=== PATIENT | male | born 1950 | race Caucasian/White ===

== ENCOUNTER → 2024-01-28 09:40 | Outpatient (REF) | payer MEDICARE, OTHER, SELFPAY | LOC: HWRAD 09:40 | PROVIDERS: ATTENDING PHYSICIAN Nurse Practitioner | DX: Z87.891 Personal history of nicotine dependence (principal) | CPT/HCPCS: 71271 ==

== ENCOUNTER → 2024-02-04 10:39 | Outpatient (REF) | payer MEDICARE, OTHER, SELFPAY | LOC: HWRAD 10:39 | PROVIDERS: ATTENDING PHYSICIAN Nurse Practitioner | DX: R10.31 Right lower quadrant pain (principal) | CPT/HCPCS: 72110; 73502 ==

== ENCOUNTER → 2024-12-06 11:14 | Outpatient (REF) | payer MEDICARE, OTHER, SELFPAY | LOC: HWRCS 11:14 | PROVIDERS: ATTENDING PHYSICIAN Internal Medicine; FAMILY PHYSICIAN Nurse Practitioner | DX: R42 Dizziness and giddiness (principal); I25.10 Atherosclerotic heart disease of native coronary artery without angina pectoris; I48.0 Paroxysmal atrial fibrillation; I25.2 Old myocardial infarction; I10 Essential (primary) hypertension | CPT/HCPCS: 93306 ==

== ENCOUNTER → 2024-12-07 08:23 | Outpatient (REF) | payer MEDICARE, OTHER, SELFPAY | LOC: HWRCS 08:23 | PROVIDERS: ATTENDING PHYSICIAN Internal Medicine; FAMILY PHYSICIAN Nurse Practitioner | DX: R42 Dizziness and giddiness (principal); I25.10 Atherosclerotic heart disease of native coronary artery without angina pectoris; I48.0 Paroxysmal atrial fibrillation; I25.2 Old myocardial infarction; I10 Essential (primary) hypertension | CPT/HCPCS: 78452; 93017; A9500 ==

== ENCOUNTER → 2024-12-13 08:43 | Outpatient (REF) | payer MEDICARE, OTHER, SELFPAY ==
[2024-12-13 10:09] LABS: % Basophils 0.6 % (0-2); % Eosinophils 2.6 % (0-6); % Immature Granulocytes 0.2 % (0-0.5); % Lymphocytes 30.6 % (20.5-51.1); % Monocytes 7.1 % (1.7-9.3); % Neutrophils 58.9 % (42.2-75.2); Absolute Eosinophils 0.2 10^3/uL (0-0.7); Absolute Lymphocytes 1.9 10^3/uL (1.2-3.4); Absolute Monocytes 0.4 10^3/uL (0.1-0.6); Absolute Neutrophils 3.6 10^3/uL (1.4-6.5); Hemoglobin 15.4 g/dL (13.0-18.0); Mean Corp Hgb Conc. 34.2 g/dL (33.0-37.0); Mean Corpuscular Hgb 30.2 pg (27.0-31.0); Mean Corpuscular Volume 88.2 fL (80.0-94.0); Mean Platelet Volume 9.3 fL (7.4-10.4); Nucleated Red Blood Cells % 0 % (-); Platelet Count 213 10^3/uL (130-400); Red Cell Dist. Width 12.6 % (11.5-14.5); White Blood Cell Count 6.2 10^3/uL (4.8-10.8)
[2024-12-13 10:20] LABS: ALT (SGPT) 24 U/L (0-50); AST (SGOT) 20 U/L (17-59); Albumin 4.2 g/dl (3.5-5.0); Alkaline Phosphatase 47 U/L (38-126); Blood Urea Nitrogen 17 mg/dl (9-20); Calcium 9.7 mg/dl (8.4-10.2); Carbon Dioxide 25 mmol/L (22-30); Chloride 106 mmol/L (98-107); Glucose 183 mg/dl (70-99); Potassium 4.1 mmol/L (3.5-5.1); Sodium 141 mmol/L (135-145); Total Bilirubin 1.3 mg/dl (0.2-1.3); Total Protein 7.1 g/dl (6.3-8.2); eGFR > 60.00
== END ==
LOC: SDSPAT 08:41 → CATH 08:43
PROVIDERS: ATTENDING PHYSICIAN Internal Medicine Cardiovascular Disease; FAMILY PHYSICIAN Nurse Practitioner; OTHER PHYSICIAN Internal Medicine
DX: R94.39 Abnormal result of other cardiovascular function study (principal); R42 Dizziness and giddiness; I25.10 Atherosclerotic heart disease of native coronary artery without angina pectoris
CPT/HCPCS: 36415; 80053; 85025; 93005

== ENCOUNTER 2024-12-15 10:07 | Day surgery (SDC) | payer MEDICARE, OTHER, SELFPAY ==
[2024-12-13 13:10] VITALS: BMI 31.3
[2024-12-15] VITALS (15 sets, daily range): BP systolic 122–143; BP diastolic 49–95; BMI 29.9
[2024-12-15] MEDS: NSS 299 ML IV (10:29)
--- NOTE | 2024-12-15 15:27 | ITS.CL.CATH ---
[employer] - Catheterization
Cardiac Catheterization
Procedure Report:
CARDIAC CATHETERIZATION REPORT
Date of Procedure: 12/15/2024
Referring: Ramiro Vega M.D., Ph.D.
INDICATION: Known coronary artery disease, abnormal stress test.
PROCEDURE:
1. Left heart catheterization.
2. Coronary angiography.
A total of 26 minutes of procedural/moderate sedation was utilized. An independent director biomedical engineering was present to assist with and help manage the patient's level of consciousness and physiologic status.
ACCESS:
1. 6 Brazilian right radial artery using a modified Seldinger technique.
CATHETERS:
1. 5 Brazilian JR4.
2. 5 Brazilian JL 3.5.
HEMODYNAMIC DATA
Weight (kg): 99.8
AO (s/d/x, mmHg): 105/55/72
LV (s/x mmHg): 108/15
LEFT VENTRICULOGRAPHY: Not performed.
CORONARY ANGIOGRAPHY
Dominance: Right.
Left Main: Normal size, bifurcating vessel. There is a moderate to severe 70+% tapering of the distal left main coronary artery as it approaches the bifurcation and extends into the LAD and circumflex.
LAD: Normal size vessel giving rise to 1 significant diagonal. There is a long, 60% lesion in the proximal vessel. There is a 50% lesion in the mid LAD. There is a 40% lesion in the proximal margin of the diagonal before it bifurcates into
upper and lower branches.
Ramus: Congenitally absent.
Circumflex: Normal size, nondominant vessel that is essentially a single obtuse marginal which bifurcates into an upper and lower branch. There is a 70% lesion in the proximal circumflex.
RCA: Large size, dominant vessel with a large posterolateral arcade. There is a patent stent in the proximal RCA. There is a 70-80% lesion in the ostium of the RPDA.
INTERVENTION(S)
None.
Closure Device: Vascular band.
Radiation (mGy): 508
DAP (cm2.Gy): 24.9
Fluoroscopy time (minutes): 2.5
CONCLUSIONS
1. Right dominant circulation with a 70-80% lesion in the ostium of the RPDA, a 70% lesion in the proximal circumflex, a severe 70+ percent tapering of the distal left main coronary artery leading into a 60% lesion within the proximal LAD, a 50%
lesion in the mid LAD and a 40% lesion in the proximal margin of the diagonal.
2. Mildly elevated filling pressures (LVEDP = 15 mmHg at 99.8 kg).
RECOMMENDATIONS:
1. Expectant management after cardiac catheterization via right radial approach.
2. Limited weight bearing on the right wrist for one week.
3. Consultation with CT surgery regarding optimal revascularization strategy.
4. Continue aggressive secondary prevention with high-dose, high potency statin. Goal LDL <55.
5. Decrease metoprolol succinate to 12.5 mg daily given relative bradycardia.
6. Continue OMT/GDMT as hemodynamics will permit.
Copy to: Ramiro Vega M.D., Ph.D., [facility] [employer]
Parker Morgan, DO, FACC, FACP
== END 2024-12-15 16:57 | disposition home or self-care (01) ==
LOC: CATH 10:07
PROVIDERS: ATTENDING PHYSICIAN Internal Medicine Cardiovascular Disease; FAMILY PHYSICIAN Nurse Practitioner; OTHER PHYSICIAN Internal Medicine
DX: I25.10 Atherosclerotic heart disease of native coronary artery without angina pectoris (principal); R94.39 Abnormal result of other cardiovascular function study; Z79.01 Long term (current) use of anticoagulants; Z79.899 Other long term (current) drug therapy
CPT/HCPCS: 99152; 99153; 93458; Q9967

== ENCOUNTER → 2025-03-23 07:19 | Outpatient (REF) | payer MEDICARE, OTHER, SELFPAY | LOC: HWRAD 07:19 | PROVIDERS: ATTENDING PHYSICIAN Internal Medicine Critical Care Medicine; FAMILY PHYSICIAN Nurse Practitioner | DX: F17.210 Nicotine dependence, cigarettes, uncomplicated (principal) | CPT/HCPCS: 71271 ==

== ENCOUNTER 2025-04-08 15:20 | Outpatient (RCR) | payer MEDICARE, OTHER, SELFPAY | END 2025-04-08 23:59 | disposition home or self-care (01) | LOC: CRHB 15:20 | PROVIDERS: ATTENDING PHYSICIAN Internal Medicine | DX: I25.10 Atherosclerotic heart disease of native coronary artery without angina pectoris (principal); Z95.5 Presence of coronary angioplasty implant and graft | CPT/HCPCS: G0422; G0423 ==

== ENCOUNTER 2025-05-09 16:12 | Outpatient (RCR) | payer MEDICARE, OTHER, SELFPAY | END 2025-05-09 23:59 | disposition home or self-care (01) | LOC: CRHB 16:12 | PROVIDERS: ATTENDING PHYSICIAN Internal Medicine | DX: I25.10 Atherosclerotic heart disease of native coronary artery without angina pectoris (principal); Z95.5 Presence of coronary angioplasty implant and graft | CPT/HCPCS: G0422; G0423 ==

== ENCOUNTER → 2025-05-12 13:23 | Outpatient (REF) | payer MEDICARE, OTHER, SELFPAY ==
[2025-05-12 16:21] LABS: ALT (SGPT) 26 U/L (0-50); AST (SGOT) 23 U/L (17-59); Albumin 4.2 g/dl (3.5-5.0); Alkaline Phosphatase 45 U/L (38-126); Blood Urea Nitrogen 16 mg/dl (9-20); Calcium 9.3 mg/dl (8.4-10.2); Carbon Dioxide 23 mmol/L (22-30); Chloride 108 mmol/L (98-107); Glucose 112 mg/dl (70-99); Potassium 4.3 mmol/L (3.5-5.1); Sodium 138 mmol/L (135-145); Total Protein 6.9 g/dl (6.3-8.2); eGFR > 60.00
== END ==
LOC: HWLAB 13:23
PROVIDERS: ATTENDING PHYSICIAN Physician Assistant Surgical; FAMILY PHYSICIAN Nurse Practitioner
DX: M25.551 Pain in right hip (principal)
CPT/HCPCS: 36415; 80053

== ENCOUNTER → 2025-05-19 12:00 | Outpatient (REF) | payer MEDICARE, OTHER, SELFPAY | LOC: DHSLP 12:00 | PROVIDERS: ATTENDING PHYSICIAN Internal Medicine Critical Care Medicine; FAMILY PHYSICIAN Nurse Practitioner | DX: G47.33 Obstructive sleep apnea (adult) (pediatric) (principal); G47.61 Periodic limb movement disorder | CPT/HCPCS: 95811 ==

== ENCOUNTER → 2025-05-30 10:15 | Outpatient (REF) | payer MEDICARE, OTHER, SELFPAY | LOC: PAVMRI 10:15 | PROVIDERS: ATTENDING PHYSICIAN Physician Assistant Surgical; FAMILY PHYSICIAN Nurse Practitioner | DX: M25.561 Pain in right knee (principal) | CPT/HCPCS: 73723; A9575 ==

== ENCOUNTER → 2025-06-06 10:30 | Outpatient (REF) | payer MEDICARE, OTHER, SELFPAY ==
[2025-06-06 12:23] LABS: Hematocrit 41.9 % (39.0-52.0); Hemoglobin 14.5 g/dL (13.0-18.0); Mean Corp Hgb Conc. 34.6 g/dL (33.0-37.0); Mean Corpuscular Volume 87.3 fL (80.0-94.0); Platelet Count 225 10^3/uL (130-400); Red Cell Dist. Width 12.7 % (11.5-14.5)
[2025-06-06 12:41] LABS: INR 1.10; PT 14.5 Sec (11.4-14.6)
[2025-06-06 12:42] LABS: APTT 32.2 Sec (23.4-35.0)
[2025-06-06 12:44] LABS: ALT (SGPT) 20 U/L (0-50); AST (SGOT) 18 U/L (17-59); Albumin 4.2 g/dl (3.5-5.0); Alkaline Phosphatase 50 U/L (38-126); Blood Urea Nitrogen 16 mg/dl (9-20); Calcium 9.7 mg/dl (8.4-10.2); Carbon Dioxide 25 mmol/L (22-30); Chloride 105 mmol/L (98-107); Glucose 87 mg/dl (70-99); Potassium 4.6 mmol/L (3.5-5.1); Sodium 134 mmol/L (135-145); Total Protein 7.3 g/dl (6.3-8.2); eGFR > 60.00
== END ==
LOC: HWLAB 10:30
PROVIDERS: FAMILY PHYSICIAN Nurse Practitioner
DX: I74.8 Embolism and thrombosis of other arteries (principal); I74.01 Saddle embolus of abdominal aorta
CPT/HCPCS: 36415; 80053; 85027; 85610; 85730

== ENCOUNTER 2025-06-10 16:11 | Outpatient (RCR) | payer MEDICARE, OTHER, SELFPAY | END 2025-06-10 23:59 | disposition home or self-care (01) | LOC: CRHB 16:11 | PROVIDERS: ATTENDING PHYSICIAN Internal Medicine; FAMILY PHYSICIAN Nurse Practitioner | DX: I25.10 Atherosclerotic heart disease of native coronary artery without angina pectoris (principal); Z95.5 Presence of coronary angioplasty implant and graft | CPT/HCPCS: G0422; G0423 ==

== ENCOUNTER 2025-06-19 12:59 | Emergency (ER) | payer MEDICARE, OTHER, SELFPAY ==
[2025-06-19 13:07] VITALS: BP 154/96
[2025-06-19 13:33] LABS: Hematocrit 43.5 % (39.0-52.0); Hemoglobin 15.1 g/dL (13.0-18.0); Mean Corp Hgb Conc. 34.7 g/dL (33.0-37.0); Mean Corpuscular Volume 86.8 fL (80.0-94.0); Nucleated Red Blood Cells % 0 % (-); Platelet Count 245 10^3/uL (130-400); Red Cell Dist. Width 12.9 % (11.5-14.5)
--- NOTE | 2025-06-19 13:42 | ED.GENMED ---
History of Present Illness
General
Chief Complaint: Male Genito-Urinary Symptoms
Source: patient
Exam Limitations: none
Time Seen by Provider: 06/19/25 13:40
Nursing documentation reviewed up to this point in time: agreed with
History of Present Illness
History of Present Illness:
75-year-old male with history of A-fib on Eliquis and Plavix, BPH on tamsulosin, HTN on lisinopril and HLD on rosuvastatin presents for acute urinary retention. He had a prostate artery embolization procedure 2 days ago, drinking plenty of water as
directed until last night when he was having trouble urinating, only dribbling some so he stopped drinking and this morning he could not urinate. He states he last urinated a little 4 hours ago. He denies fever or chills. He denies abdominal
pain, has pain in his penis.
He had the PAE procedure done at [facility] by Dr. Tomas, his urologist there is Dr. Ruiz
Past History
Past History
ED Past Medical History: Arrthythmia (atrial fib on Eliquis and Plavix), HTN, Hypercholesterolemia and [place]
ED Past Surgical History: Cardiac (Stent, Ablation for atrial fib) and Orthopedic (Bilatera knee replacement)
Social History
Tobacco: Smoker
Alcohol: None
Personal: Single (with female partner)
Living: with family
Employment: Retired
Review of Systems
Review of Systems
Allergies reviewed?: Yes
All Other Systems: ROS reviewed and negative except as documented in HPI and ROS
Phy Exam
Physical Exam
Physical Exam:
GENERAL: No acute distress. A&Ox3.
CONSTITUTIONAL: Afebrile.
RESPIRATORY: Regular respirations, nonlabored, lungs clear.
CARDIOVASCULAR: Regular rate and rhythm, no murmurs, no rubs.
GI: Soft, suprapubic tenderness, normal BS
MUSCULOSKELETAL: Moves with ease. Well perfused.
SKIN: Warm, dry, pink
PSYCH: Normal mood and affect. Well kept, interactive and appropriate
NEUROLOGIC: Awake, alert and oriented. No focal neurological deficits
Course
Orders/Labs/Results
Orders:
Orders
06/19/25 13:18
Complete Blood Count/With Diff Urgent
Comprehensive Metabolic Panel Urgent
06/19/25 13:46
Bladder Scan- Treatment ONCE
Worley Placement- Treatment ONCE
Reason for insertion: Acute Retention
Urinalysis Reflex To Culture Urgent
Date Specimen was Collected: 06/19/25
Time Specimen was Collected: 13:45
Urine Microscopic Reflex Cult Urgent
Urine Culture Urgent
JARAD Source: U
Specimen Description:
Date Specimen was Collected: 06/19/25
Time Specimen was Collected: 13:45
Abnormal Lab Results
06/19/25 06/19/25
13:18 13:46
WBC 13.3 H 10^3/uL
(4.8-10.8)
Abs Immat Gran (auto) 0.1 H 10^3/uL
(0-0.05)
Absolute Neuts (auto) 11.1 H 10^3/uL
(1.4-6.5)
Absolute Monos (auto) 0.9 H 10^3/uL
(0.1-0.6)
Neutrophils % 83.2 H %
(42.2-75.2)
Lymphocytes % 9.5 L %
(20.5-51.1)
Sodium 132 L mmol/L
(135-145)
Glucose 112 H mg/dl
(70-99)
Ur Occult Blood Reflex 1+ A
(Negative)
Urine Nitrite (Reflex) Positive A
(Negative)
Urine Bilirubin 2+ A
(Negative)
Urine Urobilinogen 3+ A
(Neg - 1+)
Urine RBC 7-10 A /HPF
(0-2)
Urine Bacteria (Reflex) Few A
(Negative)
Urine Albumin (Reflex) 1+ A
(Neg - Trace)
06/19/25 13:18
06/19/25 13:18
Vital Signs
Initial and Last Documented VS:
Initial Vital Signs
Temp Pulse Resp BP Pulse Ox
97.8 F 85 19 154/96 95
06/19/25 13:07 06/19/25 13:07 06/19/25 13:07 06/19/25 13:07 06/19/25 13:07
Last Documented Vital Signs
Temp Pulse Resp BP Pulse Ox
97.8 F 80 15 150/85 95
06/19/25 13:07 06/19/25 15:20 06/19/25 15:20 06/19/25 15:20 06/19/25 15:20
MDM/Problems Addressed
Differential Diagnosis Includes:
UTI,
MDM/Problems Addressed:
75-year-old male with history of A-fib on Eliquis and Plavix, BPH on tamsulosin, HTN on lisinopril and HLD on rosuvastatin presents for acute urinary retention. He had a prostate artery embolization procedure 2 days ago, drinking plenty of water as
directed until last night when he was having trouble urinating, only dribbling some so he stopped drinking and this morning he could not urinate. He states he last urinated a little 4 hours ago. He denies fever or chills. He denies abdominal
pain, has pain in his penis.
He had the PAE procedure done at [facility] by Dr. Tomas, his urologist there is Dr. Ruiz
Afebrile, NAD
Bedside bladder scan reveals greater than 700 mL, Worley catheter ordered
Worley catheter inserted, 1200 mL return
2:40 PM:
UA shows no infection
patient stable for discharge, Worley catheter intact, he will f/u tomorrow with his Urologist
*Pulse Oximetry
SaO2: 95
Patient hypoxic: not evaluated
*Critical Care Note
Total Time (30-74mins, 75-104mins- exclusive of procedures): Not Applicable
ED Attending Note
-
Portions of this chart may have been created with voice recognition software.� Occasional wrong word or��sound alike� substitutions may have occurred due to the inherent limitations of voice recognition software.
Discharge Plan
Departure
Patient Disposition: Home (Routine Discharge)
Date of Disposition: 06/19/25
Time of Disposition: 15:26
Patient with high blood pressure during this ER visit?: No
Condition: Good
Discharge Problem:
Acute retention of urine
Instructions: Urinary retention (DC)
Prescriptions:
No Action
tamsulosin [Flomax] 0.4 mg Capsule
0.4 mg PO BID
lisinopril 5 mg Tablet
5 mg DAILY
multivitamin with iron-mineral Tablet
DAILY
rosuvastatin 40 mg Tablet
40 mg PO DAILY
tadalafil [Cialis] 5 mg Tablet
5 mg PO DAILY
Eliquis 5 mg Tablet
5 mg PO BID
Vitamin D (with calcium)
DAILY
nitroglycerin 0.4 mg tablet, sublingual
0.4 mg sublingual [id number] PRN (Reason: chest pain) Qty: 25 5RF
metoprolol succinate 25 mg Tablet Extended Release 24 Hr
12.5 mg PO DAILY Qty: 0 0RF
Referrals:
Alvaro Ruiz MD [Non-Admitting Privileges] - Tomorrow
Bernadine North CRNP [Family Provider, Family Practice]
Activity Restrictions/Additional Instructions:
As we discussed, your urine is not infected.
Call your urologist tomorrow and make a follow-up appointment.
Interventions
Interventions:
*Risk Screen - Suicide Last Done: 06/19/25 13:09
*General Assessment Last Done: 06/19/25 13:09
*Neglect/Abuse Screening Last Done: 06/19/25 13:09
*ED- Fall Risk Assessment Last Done: 06/19/25 13:42
*ED COVID-19 Vaccine History Last Done: 06/19/25 13:09
*ED Influenza Vaccine History Last Done: 06/19/25 13:09
*Nursing Disposition Last Done: 06/19/25 15:39
ED-Male Genitourinary Assessment Last Done: 06/19/25 13:42
Discharge Date and Time
Discharge Date/Time: 06/19/25 15:41
Print Language: BURMESE
[2025-06-19 13:44] LABS: ALT (SGPT) 23 U/L (0-50); AST (SGOT) 21 U/L (17-59); Albumin 4.5 g/dl (3.5-5.0); Alkaline Phosphatase 68 U/L (38-126); Blood Urea Nitrogen 16 mg/dl (9-20); Calcium 9.7 mg/dl (8.4-10.2); Carbon Dioxide 26 mmol/L (22-30); Chloride 101 mmol/L (98-107); Glucose 112 mg/dl (70-99); Potassium 4.2 mmol/L (3.5-5.1); Sodium 132 mmol/L (135-145); Total Protein 7.9 g/dl (6.3-8.2); eGFR > 60.00
[2025-06-19 14:19] LABS: Urine Character Clear (Clear)
[2025-06-19 14:57] LABS: Urine Urothelial Cell 0-2 /LPF (FEW)
[2025-06-19 15:20] VITALS: BP 150/85
== END 2025-06-19 15:41 | disposition home or self-care (01) ==
LOC: EMR 12:59
PROVIDERS: Emergency Medicine; Registered Nurse; EMERGENCY PHYSICIAN Emergency Medicine; FAMILY PHYSICIAN Nurse Practitioner
DX: N40.1 Benign prostatic hyperplasia with lower urinary tract symptoms (principal); R33.8 Other retention of urine; I48.91 Unspecified atrial fibrillation; E78.00 Pure hypercholesterolemia, unspecified; I10 Essential (primary) hypertension; F17.200 Nicotine dependence, unspecified, uncomplicated; Z79.01 Long term (current) use of anticoagulants; Z79.02 Long term (current) use of antithrombotics/antiplatelets; Z95.5 Presence of coronary angioplasty implant and graft; Z79.899 Other long term (current) drug therapy
CPT/HCPCS: 51702; 99283; 80053; 81003; 81015; 85025; 87086

== ENCOUNTER 2025-07-08 15:25 | Outpatient (RCR) | payer MEDICARE, OTHER, SELFPAY | END 2025-07-08 23:59 | disposition home or self-care (01) | LOC: CRHB 15:25 | PROVIDERS: ATTENDING PHYSICIAN Internal Medicine; FAMILY PHYSICIAN Nurse Practitioner | DX: I25.10 Atherosclerotic heart disease of native coronary artery without angina pectoris (principal); Z95.5 Presence of coronary angioplasty implant and graft | CPT/HCPCS: G0422; G0423 ==

== ENCOUNTER 2025-07-18 14:32 | Outpatient (RCR) | payer MEDICARE, OTHER, SELFPAY ==
[2025-07-14 08:47] LABS: HDL Cholesterol 45 mg/dl; LDL Cholesterol, Calculated 34 mg/dl; Very Low Density Lipoprotein 12 mg/dl (0-30)
== END 2025-07-20 11:55 | disposition home or self-care (01) ==
LOC: CRHB 14:32
PROVIDERS: ATTENDING PHYSICIAN Internal Medicine; FAMILY PHYSICIAN Nurse Practitioner
DX: I25.10 Atherosclerotic heart disease of native coronary artery without angina pectoris (principal); Z95.5 Presence of coronary angioplasty implant and graft
CPT/HCPCS: 36415; 80061; G0422; G0423